=== PATIENT | male | born 1995 | race Caucasian/White ===

== ENCOUNTER 2017-07-22 20:57 | Emergency (ER) | payer SELFPAY ==
[~2017-07-22] VITALS: Ht 182.9 cm; Wt 123.0 kg
[~2017-07-22 20:57] MED LIST: IBUP800T23 PO; OSEL75 PO
[2017-07-22 21:02] VITALS: BP 136/91; PULSE 100; RESP 18; TEMP 100.4; O2SAT 95
[2017-07-22 21:09] VITALS: PULSE 102; RESP 18; O2SAT 96
--- NOTE | 2017-07-22 21:34 | PD ---
HPI Chief Complaint: Cold / Flu Symptoms Time Seen by Provider: 21:28 Travel History International Travel<30 days: No Contact w/Intl Traveler<30days: No Traveled to known affect area: No History of Present Illness HPI This 22-year-old male is complaining of cough and congestion. His symptoms been going on for a couple of weeks. He had a fever 3 or 4 days ago. He vomited a few days ago. He has not been short of breath. He stopped smoking a few months ago. He has a history of asthma. [facility] Past Medical History Asthma: Yes Respiratory: Yes (CHILDHOOD ASTHMA) ?: Not Social History Alcohol Use: No Tobacco Use: No Substance Use: No Allergies-Medications (Allergen,Severity, Reaction): Coded Allergies: No Known Allergies (Unverified , 12/30/16) Reported Meds & Prescriptions Reported Meds & Active Scripts Active Review of Systems General / Constitutional: Positive: Fever, No: Chills Eyes: No: Diploplia HENT: No: Headaches, Vertigo Cardiovascular: No: Chest Pain or Discomfort, Palpitations Respiratory: Positive: Cough, No: Shortness of Breath Gastrointestinal: No: Nausea, Vomiting Genitourinary: No: Urgency, Frequency Musculoskeletal: No: Myalgias Skin: No Rash, No Itching Physical Exam Narrative GENERAL: Well-developed male SKIN: Focused skin assessment warm/dry. HEAD: Atraumatic. Normocephalic. EYES: Pupils equal and round. No scleral icterus. No injection or drainage. ENT: No nasal bleeding or discharge. Mucous membranes pink and moist. NECK: Trachea midline. No JVD. CARDIOVASCULAR: Regular rate and rhythm. No murmur appreciated. RESPIRATORY: No accessory muscle use. There are scattered rhonchi bilaterally Breath sounds equal bilaterally. GASTROINTESTINAL: Abdomen soft, non-tender, nondistended. Hepatic and splenic margins not palpable. MUSCULOSKELETAL: No obvious deformities. No clubbing. No cyanosis. No edema. NEUROLOGICAL: Awake and alert. No obvious cranial nerve deficits. Motor grossly within normal limits. Normal speech. PSYCHIATRIC: Appropriate mood and affect; insight and judgment normal. Data Data Last Documented VS Vital Signs Date Time Temp Pulse Resp B/P (MAP) Pulse Ox O2 Delivery O2 Flow Rate FiO2 07/22/17 21:11 18 96 07/22/17 21:09 102 07/22/17 21:02 100.4 136/91 (106) Orders Orders Influenzae A/B Antigen (07/22/17 21:32) MDM Medical Decision Making Medical Screen Exam Complete: Yes Emergency Medical Condition: Yes Medical Record Reviewed: Yes Differential Diagnosis Differential includes influenza, asthma, bronchitis Narrative Course Plans the test is negative. Patient be placed on amoxicillin Diagnosis Primary Impression: Bronchitis Scripts Amoxicillin (Amoxicillin) 500 Mg Tab 500 MG PO TID for Infection, #30 TAB 0 Refills Prov: Georgi Padilla MD 07/22/17 Disposition: 01 DISCHARGE HOME Condition: Stable Georgi Padilla MD Jul 22, 2017 21:34
[2017-07-22] MEDS ORDERED: AMOX500T PO (22:10)
[2017-07-22] MEDS ORDERED: AMOXICILLIN (TRIHYDRATE) 500 MG CAP PO ONE (22:15)
[2017-07-22 22:39] VITALS: TEMP 99.5
== END 2017-07-22 22:39 | disposition home or self-care (01) ==
LOC: MERGE 20:57 → PHED 20:57
DX: J40 Bronchitis, not specified as acute or chronic (principal)
CPT/HCPCS: 87804; 99283

== ENCOUNTER 2018-04-01 12:20 | Emergency (ER) | payer OTHER ==
[~2018-04-01] VITALS: Ht 177.8 cm; Wt 111.9 kg
[~2018-04-01 12:20] MED LIST changes: +AMOX500T PO; -IBUP800T23 PO; -OSEL75 PO
[2018-04-01 12:26] VITALS: BP 142/63; PULSE 87; RESP 16; TEMP 98.5; O2SAT 99
--- NOTE | 2018-04-01 13:08 | PD ---
HPI Chief Complaint: Musculoskeletal Complaint Time Seen by Provider: 12:55 Travel History International Travel<30 days: No Contact w/Intl Traveler<30days: No Traveled to known affect area: No History of Present Illness HPI 22-year-old male presents emergency department for evaluation of right hand pain , numbness, tingling that is been present for 2 weeks. Patient states that today he noticed some discoloration and decided to come to the emergency department for evaluation. Patient says he is having trouble moving around his wrist and hand because of the sensations that he has. Says that his middle finger in particular has a sharp painful sensation occasionally. No exacerbating or relieving factors. 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 Denies injury. Denies chronic medical issues medication use. PFSH Past Medical History Asthma: Yes Respiratory: Yes (CHILDHOOD ASTHMA) Social History Alcohol Use: No Tobacco Use: No Substance Use: No Allergies-Medications (Allergen,Severity, Reaction): Coded Allergies: No Known Allergies (Verified Allergy, Unknown, 04/01/18) Reported Meds & Prescriptions Reported Meds & Active Scripts Active No Active Prescriptions or Reported Medications Review of Systems Except as stated in HPI: all other systems reviewed are Neg Physical Exam Narrative GENERAL: Well-nourished, well-developed patient. SKIN: Focused skin assessment warm/dry. HEAD: Normocephalic. EYES: No scleral icterus. No injection or drainage. NECK: Supple, trachea midline. No midline tenderness CARDIOVASCULAR: Regular rate and rhythm without murmurs, gallops, or rubs. RESPIRATORY: Breath sounds equal bilaterally. No accessory muscle use. MUSCULOSKELETAL: No cyanosis, or edema. Right wrist-mildly positive Tinel's, negative Phalen's, neurovascularly intact distally, slightly weak head and neck surgeon strength compared to the left. No areas of ecchymosis, edema, erythema. Skin intact BACK: Nontender without obvious deformity. No CVA tenderness. Data Data Last Documented VS Vital Signs Date Time Temp Pulse Resp B/P (MAP) Pulse Ox O2 Delivery O2 Flow Rate FiO2 04/01/18 12:26 98.5 87 16 142/63 (89) 99 MDM Medical Decision Making Medical Screen Exam Complete: Yes Emergency Medical Condition: Yes Differential Diagnosis Right wrist sprain, neuritis, neuralgia, carpal tunnel syndrome, cellulitis, fracture Narrative Course 22-year-old male presents emergency department for evaluation of right hand pain , numbness, tingling that is been present for 2 weeks. Patient states that today he noticed some discoloration and decided to come to the emergency department for evaluation. Patient says he is having trouble moving around his wrist and hand because of the sensations that he has. Says that his middle finger in particular has a sharp painful sensation occasionally. No exacerbating or relieving factors. 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 Denies injury. Denies chronic medical issues medication use. Vital signs are stable. Physical exam findings most consistent with carpal tunnel syndrome or other neuralgia. No inciting events, no trauma. Right wrist brace applied. Tylenol or Motrin per package instructions for pain. Diagnosis Primary Impression: Neuralgia Referrals: Neurologist Departure Forms: Tests/Procedures, Work Release Enter return to work date: April 04, 2018 Additional Instructions: Use ice or heat for symptom relief. If no contraindications, you may use Tylenol or Motrin per package instructions for your pain. Elevate the joint above the heart to reduce swelling. You may use compression with Duncan wrap or similar to reduce swelling. If symptoms persist or worsen, return to the emergency department. Follow up with your primary care physician within 2 days. Scripts No Active Prescriptions or Reported Meds Disposition: 01 DISCHARGE HOME Condition: Stable Danay Ramirez April 01, 2018 13:08
== END 2018-04-01 13:40 | disposition home or self-care (01) ==
LOC: PHEFT 12:20
DX: M79.2 Neuralgia and neuritis, unspecified (principal); J45.909 Unspecified asthma, uncomplicated
CPT/HCPCS: 99282; L3908